=== PATIENT | male | born 1965 | race Caucasian/White ===

== ENCOUNTER → 2023-12-19 | Outpatient (CLI) | payer BC ==
--- NOTE | 2023-12-19 09:49 | FL ---
EXAMINATION TYPE: FL barium swallow DATE OF EXAM: 12/19/2023 9:37 AM COMPARISON: Chest radiograph from 12/19/2023. CLINICAL INDICATION:Male, 58 years old with history of R13.19 OTHER DYSPHAGIA; [facility], TECHNIQUE: The procedure was explained and patient history elicited. All patient questions were ans wered prior to start of procedure. Multiple spot fluoroscopic images of the esophagus were obtained a fter the oral ingestion of effervescent crystals and liquid barium as the contrast agent. Fluoroscopic time: Not reported sec Fluoroscopic images: Radiographs taken: 226 DAP: Not reported [id number] FINDINGS: The esophagus demonstrates normal primary and secondary peristalsis. The esophageal mucosa is smooth without evidence of focal stricture, ulceration, or abnormal outpouching. No gastroesophageal reflu x disease was identified by the patient. IMPRESSION: 1. Reported mass/ulcer within the larynx not definitively visualized. Normal esophagram.
== END | disposition home or self-care (01) ==
LOC: RADUSWWP 08:45
PROVIDERS: ATTEND Otolaryngology
DX: R13.19 Other dysphagia (principal)
CPT/HCPCS: 74220

== ENCOUNTER → 2023-12-19 | Outpatient (CLI) | payer BC ==
--- NOTE | 2023-12-19 08:41 | XR ---
EXAMINATION TYPE: XR chest special 4+ views DATE RECEIVED ON: 12/19/2023 DATE PERFORMED: 12/19/2023 COMPARISON: NONE HISTORY: Laryngeal ulcer by scope TECHNIQUE: Frontal and lateral views of the chest are obtained. Both oblique views were obtained. FINDINGS: The heart size is normal. The pulmonary vasculature is normal. The lungs are clear. Trac heobronchial tree as visualized is normal. IMPRESSION: 1. No acute cardiopulmonary process.
[2023-12-19 16:37] LABS: Anion Gap 14.6 mmol/L (4.00-12.00); Carbon Dioxide 24.4 mmol/L (21.6-31.8); Potassium 5.1 mmol/L (3.5-5.5)
== END | disposition home or self-care (01) ==
LOC: LABWHC1 06:53
PROVIDERS: ATTEND Otolaryngology
DX: I10 Essential (primary) hypertension (principal); E11.9 Type 2 diabetes mellitus without complications; R05.3 Chronic cough
CPT/HCPCS: 36415; 71048; 80051; 82947